=== PATIENT | male | born 1965 | race Caucasian/White ===

== ENCOUNTER 2022-02-11 18:18 | Emergency (ER) | payer OTHER ==
[2022-02-11 19:52] VITALS: TEMP 98.4
[2022-02-11] MEDS ORDERED: SODIUM CHLORIDE 0.9% 1,000 ML IV ONE (21:37)
[2022-02-11] MEDS ORDERED: lisinopriL 20 MG TAB PO STA (21:37)
--- NOTE | 2022-02-11 21:41 | ED ---
Abdominal Pain HPI - General Chief Complaint: Abdominal Pain Stated Complaint: Hernia Time Seen by Provider: 02/11/22 21:30 Source: patient, RN notes reviewed Mode of arrival: ambulatory Limitations: no limitations - History of Present Illness Initial Comments: This is a pleasant 56-year-old who presents to the emergency department complaining of abdominal/umbilical hernia. Patient states he was lifting a tote at work when he felt a bulge on his umbilicus. Patient with his regular doctor and states that he was able to reduce it several times but keeps popping out. For this reason he was instructed to go to the emergency department. Patient denying any nausea or vomiting. Denies any changes in bowel much urination. No patient noted to be hypertensive in triage but states he has not taken his pressure medicine all day. Denies any chest pain or shortness of breath No headache, no fever or chills, no changes in vision or hearing, no sore throat or difficulty with speech, no neck pain, no chest pain or shortness of breath, no nausea or vomiting, no changes in urination or bowel movements, no numbness or tingling, no extremity pain, no skin rashes or lesions. MD Complaint: abdominal pain - Related Data Allergies Allergy/AdvReac Type Severity Reaction Status Date / Time No Known Allergies Allergy Verified 02/11/22 19:51 Review of Systems ROS Statement: Those systems with pertinent positive or pertinent negative responses have been documented in the HPI. ROS Other: All systems not noted in ROS Statement are negative. Past Medical History Past Medical History: Hyperlipidemia, Hypertension History of Any Multi-Drug Resistant Organisms: None Reported Past Surgical History: Orthopedic Surgery Past Psychological History: No Psychological Hx Reported Smoking Status: Current every day smoker Past Alcohol Use History: Occasional Past Drug Use History: Marijuana General Exam - General Exam Comments Initial Comments: Patient does not appear to be ill or toxic. Vital signs reviewed. Limitations: no limitations General appearance: alert, in no apparent distress Head exam: Present: atraumatic, normocephalic, normal inspection Eye exam: Present: normal appearance, PERRL, EOMI. Absent: scleral icterus, conjunctival injection, periorbital swelling ENT exam: Present: normal exam, mucous membranes moist Neck exam: Present: normal inspection, full ROM. Absent: tenderness, meningismus, lymphadenopathy Respiratory exam: Present: normal lung sounds bilaterally. Absent: respiratory distress, wheezes, rales, rhonchi, stridor, chest wall tenderness, accessory muscle use Cardiovascular Exam: Present: regular rate, normal rhythm, normal heart sounds. Absent: systolic murmur, diastolic murmur, rubs, gallop, clicks GI/Abdominal exam: Present: soft, normal bowel sounds, hernia (Reducible, but recurrent umbilical hernia noted. Remainder the abdomen is soft. Tender at the hernia site.). Absent: distended, tenderness, guarding, rebound, rigid Extremities exam: Present: normal inspection, full ROM, normal capillary refill. Absent: tenderness, pedal edema, joint swelling, calf tenderness Back exam: Present: normal inspection Neurological exam: Present: alert, oriented X3, CN II-XII intact Psychiatric exam: Present: normal affect, normal mood Skin exam: Present: warm, dry, intact, normal color. Absent: rash Course Vital Signs 02/11/22 02/11/22 19:49 23:12 Temperature 98.4 F Pulse Rate 103 H 83 Respiratory 20 18 Rate Blood Pressure 208/112 186/91 O2 Sat by Pulse 100 99 Oximetry - Reevaluation(s) Reevaluation #1: 02/11/22 23:02 Medical record is reviewed Symptoms are improved here in the emergency department Patient is informed of results and questions answered Patient in no distress Medical Decision Making - Medical Decision Making Reducible and local hernia which has been out several times a day. Will not stay reduced. Patient hypotensive, has not taken his blood pressure medication. There is a fat containing umbilical hernia with no evidence of obstructive pattern. The patient's blood pressure was elevated on initial evaluation. However he had not taken his antihypertensive medication. Patient was asymptomatic regarding blood pressure. No chest pain or shortness of breath. No edema. No vision or hearing changes. No headache. No urinary complaints. Pressure down to 186/91. Patient urged to follow-up with his regular physician regarding blood pressure control. Patient was told to return to the ER for any signs or symptoms worsen. Told to return immediately if any other problems arise. All questions answered. Treatment plan discussed. Patient in agreement Every effort has been made to ensure accuracy of this dictation. However, due to the limitations of electronic medical records and dictation devices, errors in charting still occur. Patient given follow-up instructions for the general surgeon. Activity limitations. Manufacturers Agent Dr. Roskopp - Lab Data Result diagrams: 02/11/22 21:58 02/11/22 21:58 Lab Results 02/11/22 02/11/22 02/11/22 Range/Units 21:58 21:58 21:58 WBC 11.5 H (3.8-10.6) k/uL RBC 4.99 (4.30-5.90) m/uL Hgb 15.5 (13.0-17.5) gm/dL Hct 46.7 (39.0-53.0) % MCV 93.6 (80.0-100.0) fL MCH 31.0 (25.0-35.0) pg MCHC 33.2 (31.0-37.0) g/dL RDW 13.3 (11.5-15.5) % Plt Count 313 (150-450) k/uL MPV 7.5 Neutrophils % 74 % Lymphocytes % 18 % Monocytes % 4 % Eosinophils % 2 % Basophils % 1 % Neutrophils # 8.5 H (1.3-7.7) k/uL Lymphocytes # 2.1 (1.0-4.8) k/uL Monocytes # 0.5 (0-1.0) k/uL Eosinophils # 0.3 (0-0.7) k/uL Basophils # 0.1 (0-0.2) k/uL Sodium 138 (137-145) mmol/L Potassium 4.0 (3.5-5.1) mmol/L Chloride 104 (98-107) mmol/L Carbon Dioxide 28 (22-30) mmol/L Anion Gap 6 mmol/L BUN 15 (9-20) mg/dL Creatinine 0.82 (0.66-1.25) mg/dL Est GFR (CKD-EPI)AfAm >90 (>60 ml/min/1.73 sqM) Est GFR (CKD-EPI)NonAf >90 (>60 ml/min/1.73 sqM) Glucose 94 (74-99) mg/dL Plasma Lactic Acid Zack 0.8 (0.7-2.0) mmol/L Calcium 9.3 (8.4-10.2) mg/dL Total Bilirubin 0.4 (0.2-1.3) mg/dL AST 29 (17-59) U/L ALT 28 (4-49) U/L Alkaline Phosphatase 136 H (38-126) U/L Total Protein 7.0 (6.3-8.2) g/dL Albumin 4.4 (3.5-5.0) g/dL - Radiology Data Radiology results: report reviewed, image reviewed Fat-containing umbilical hernia noted, no evidence of obstructive pattern per radiology. Disposition Clinical Impression: Umbilical hernia, Hypertension, poor control Narrative: Fat-containing umbilical hernia--reducible Disposition: HOME SELF-CARE Condition: Stable Instructions (If sedation given, give patient instructions): Umbilical Hernia (ED), Hypertension (ED) Additional Instructions: Follow-up with your regular physician as directed regarding blood pressure. Called the surgeon's office tomorrow morning to schedule an appointment. Return to the ER immediately if any symptoms worsen, new symptoms arise, or any other problems develop. Tylenol as directed on bottle for pain control. Is patient prescribed a controlled substance at d/c from ED?: No Referrals: Josh Henderosn DO [Primary Care Provider] - 1-2 days Time of Disposition: 23:04
[2022-02-11 22:22] LABS: Basophils # (A) 0.1 k/uL (0-0.2); Basophils % (A) 1 %; Eosinophils # (A) 0.3 k/uL (0-0.7); Eosinophils % (A) 2 %; HCT 46.7 % (39.0-53.0); HGB 15.5 gm/dL (13.0-17.5); Lymphocytes # (A) 2.1 k/uL (1.0-4.8); Lymphocytes % (A) 18 %; MCHC 33.2 g/dL (31.0-37.0); MCV 93.6 fL (80.0-100.0); Mean Platelet Volume 7.5; Monocytes # (A) 0.5 k/uL (0-1.0); Monocytes % (A) 4 %; Neutrophils # (A) 8.5 k/uL (1.3-7.7); Neutrophils % (A) 74 %; Platelet Count 313 k/uL (150-450); RBC 4.99 m/uL (4.30-5.90); RDW 13.3 % (11.5-15.5); WBC 11.5 k/uL (3.8-10.6)
[2022-02-11 22:24] LABS: ALT 28 U/L (4-49); AST 29 U/L (17-59); African American GFR (CKD) >90 (>60 ml/min/1.73 sqM); Albumin 4.4 g/dL (3.5-5.0); Alkaline Phosphatase 136 U/L (38-126); Anion Gap 6 mmol/L; Blood Urea Nitrogen 15 mg/dL (9-20); Calcium 9.3 mg/dL (8.4-10.2); Carbon Dioxide 28 mmol/L (22-30); Chloride 104 mmol/L (98-107); Glucose 94 mg/dL (74-99); Non-African American GFR(CKD) >90 (>60 ml/min/1.73 sqM); Sodium 138 mmol/L (137-145); Total Bilirubin 0.4 mg/dL (0.2-1.3)
--- NOTE | 2022-02-11 22:58 | CT ---
EXAMINATION TYPE: CT abdomen pelvis w con DATE OF EXAM: 02/11/2022 COMPARISON: None HISTORY: pain CT DLP: 1131.2 mGycm Automated exposure control for dose reduction was used. CONTRAST: Performed with IV Contrast, patient injected with 100 mL of Isovue 300. Images obtained from the diaphragm to the floor the pelvis with IV contrast. The lung bases are clear. No pleural effusion. Heart size is normal. No pericardial effusion. Liver s pleen and stomach pancreas and gallbladder appear intact. The bile ducts are not dilated. There is no adrenal mass. Kidneys show satisfactory contrast opacification. There is no hydronephrosi s. Bladder distends smoothly. There is fat-containing inguinal hernias. No pelvic mass. No free fluid in the pelvis. There is 3 cm fat-containing umbilical hernia. Abdominal aorta is atheromatous. Appen cailin is posterior and appears normal. There is no mesenteric edema. No ascites or free air. No bowel o bstruction. The lumbar vertebrae have normal alignment. There is no compression fracture. Posterior elements are intact. Facet joints are intact. Bony pelvis is intact. Hip joints are intact. IMPRESSION: No acute abnormality in the abdomen pelvis. Umbilical fat-containing hernia. No bowel obstruction.
[2022-02-11 23:14] VITALS: BP 186/91; PULSE 83; RESP 18
== END 2022-02-11 23:45 | disposition home or self-care (01) ==
LOC: EC 18:18
DX: K42.9 Umbilical hernia without obstruction or gangrene (principal); E78.5 Hyperlipidemia, unspecified; I10 Essential (primary) hypertension; F17.200 Nicotine dependence, unspecified, uncomplicated
CPT/HCPCS: 36415; 80053; 83605; 85025; 74177; 99284; Q9967

== ENCOUNTER 2022-03-04 05:42 | Day surgery (SDC) | payer OTHER ==
[2022-02-28 15:47] VITALS: BMI 26.9
[~2022-03-04 05:42] MED LIST: ACETAMINOPHEN TAB 500 MG TAB PO PRN; DEXAMETHASONE SOD PHOSPHATE 4 MG/ML 1 ML VIAL IV ONE; HEPARIN SODIUM,PORCINE/PF 5,000 UNIT/0.5 ML SYRINGE SQ PRN; HYDROmorphone 0.5 MG/0.5 ML SYRINGE IVP PRN; LACTATED RINGERS 1,000 ML IV SCH; fentaNYL (PF) 50 MCG/ML 2 ML AMP IV PRN
[2022-03-04] MEDS ORDERED: ONDANSETRON 4 MG/2 ML VIAL ONE (06:49)
[2022-03-04] MEDS ORDERED: DEXAMETHASONE SOD PHOSPHATE 4 MG/ML 1 ML VIAL IVP ONE (07:03)
[2022-03-04] MEDS ORDERED: MIDAZOLAM 2 MG/2 ML VIAL ONE (07:55)
[2022-03-04] MEDS ORDERED: fentaNYL (PF) 50 MCG/ML 2 ML AMP ONE (07:55)
[2022-03-04] MEDS ORDERED: ROCURONIUM 10 MG/ML (5 ML VIAL) IV ONE (07:55)
[2022-03-04] MEDS ORDERED: PROPOFOL 10 MG/ML 20 ML VIAL IV ONE (07:55)
[2022-03-04] MEDS ORDERED: GLYCOPYRROLATE 0.2 MG/ML 2 ML VIAL ONE (07:55)
[2022-03-04] MEDS ORDERED: SUCCINYLCHOLINE CHLORIDE 100 MG/5 ML SYR IV ONE (07:55)
[2022-03-04] MEDS ORDERED: KETAMINE 10 MG/ML 20 ML VIAL ONE (07:55)
[2022-03-04] MEDS ORDERED: NEOSTIGMINE 1 MG/ML 10 ML VIAL ONE (07:55)
[2022-03-04] MEDS ORDERED: LIDOCAINE 2% INJ 20 MG/ML (2 ML VIAL) ONE (07:55)
[2022-03-04] MEDS ORDERED: HYDROmorphone (PF) 1 MG/ML ONE (07:55)
[2022-03-04] MEDS ORDERED: PHENYLEPHRINE-0.9% NACL SYG 1,000 MCG/10 ML SYRINGE ONE (07:55)
[2022-03-04] MEDS ORDERED: BUPIVACAIN-EPI 0.25%-1:200,000 30 ML VIAL SQ ONE ×3 (08:16→08:21)
--- NOTE | 2022-03-04 09:07 | P.GSHP ---
History of Present Illness H&P Date: 03/04/22 Chief Complaint: Umbilical hernia This a 56-year-old male with incarcerated umbilical hernia. Patient presents today for laparoscopic robotic-assisted repair. Past Medical History Past Medical History: Hyperlipidemia, Hypertension, Osteoarthritis (OA) History of Any Multi-Drug Resistant Organisms: None Reported Past Surgical History: Heart Catheterization, Orthopedic Surgery Additional Past Surgical History / Comment(s): LEFT SHOULDER SURGERY , BONE SPURS ON RIGHT SHOULDER Past Anesthesia/Blood Transfusion Reactions: No Reported Reaction Smoking Status: Current every day smoker - Past Family History Sister(s) Family Medical History: Cancer Additional Family Medical History / Comment(s): BREAST CANCER Medications and Allergies Home Medications Medication Instructions Recorded Confirmed Type lisinopriL 30 mg PO BID 02/28/22 02/28/22 History Acetaminophen [Tylenol Extra 500 mg PO DAILY PRN 03/04/22 03/04/22 History Strength] Allergies Allergy/AdvReac Type Severity Reaction Status Date / Time No Known Allergies Allergy Verified 03/04/22 06:19 Surgical - Exam Vital Signs Temp Pulse Resp BP Pulse Ox 97.2 F L 58 L 16 152/76 98 03/04/22 06:25 03/04/22 06:25 03/04/22 06:25 03/04/22 06:25 03/04/22 06:25 - General well developed, well nourished, no distress - Eyes PERRL - ENT normal pinna - Neck no masses - Respiratory normal expansion - Cardiovascular Rhythm: regular - Abdomen Abdomen: soft, non tender Hernia: umbilical (3 cm incarcerated umbilical hernia) Assessment and Plan Assessment: Impression local hernia. We'll perform laparoscopic robotic-assisted repair.
--- NOTE | 2022-03-04 09:09 | P.OP ---
Date of Procedure: 03/04/22 Preoperative Diagnosis: Incarcerated umbilical hernia Postoperative Diagnosis: Incarcerated umbilical hernia Procedure(s) Performed: Laparoscopic robotic-assisted repair of incisional hernia. Partial omentectomy Transversus abdominous plane block Anesthesia: ROGER Surgeon: Lorenzo Fischer Estimated Blood Loss (ml): 5 Pathology: other (Omentum/hernia sac) Condition: stable Disposition: PACU Description of Procedure: The patient was placed on the operating table in the supine position. He received general anesthesia. His abdomen was prepped and draped usual fashion. Using a 5 mm optical trocar under direct visualization the peritoneal cavity was entered in the left upper quadrant. The abdomen was then insufflated. The laparoscope was placed back into the perineal cavity. Next a 8 mm robotic trocar was placed in the left lower quadrant and a 12 mm robotic trocar was placed in the left lateral position. The original 5 mm trocar was exchanged for a 8 mm robotic trocar. The patient's placed in the left side up position. A four-quadrant transversus abdominis plane block was performed using 1% local Xylocaine. And the patient was docked the robot. The umbilical hernia was visualized. Using hook cautery the peritoneum over the umbilical hernia was excised. Incarcerated omentum and hernia sac were dissected free and sent to pathology. The fascial opening was repaired using 0V LOC suture. Next a piece of 11 cm round ventral light ST mesh was placed into the. Cavity and secured with 2 OV lock suture. The patient was undocked the robot. The needles were retrieved. The fascia of the 12 mm trocar site was closed with 0 Ethibond suture. Skin was closed interrupted 3-0 Monocryl suture. Dermabond dressings was applied. Patient top procedure well and was sent to recovery room stable condition.
[2022-03-04 09:20] VITALS: TEMP 96.8
[2022-03-04] MEDS ORDERED: HYDROmorphone 0.5 MG/0.5 ML SYRINGE IVP ONE ×2 (09:25→09:38)
[2022-03-04] MEDS ORDERED: LACTATED RINGERS 1,000 ML IV ONE ×2 (09:30)
[2022-03-04 11:24] VITALS: BP 158/78; PULSE 72; RESP 18
== END 2022-03-04 11:30 | disposition home or self-care (01) ==
LOC: OR 05:42
PROVIDERS: ATTEND Surgery
DX: K42.0 Umbilical hernia with obstruction, without gangrene (principal); I10 Essential (primary) hypertension; E78.5 Hyperlipidemia, unspecified; F17.200 Nicotine dependence, unspecified, uncomplicated; Z79.899 Other long term (current) drug therapy; Z80.3 Family history of malignant neoplasm of breast
CPT/HCPCS: 49653; 88305; C1781; J2250; J1100; J2710; J0690; J2405; J3010; J1170 ×2; J2370; J0330; J2704; J1644; J2001

== ENCOUNTER 2022-04-16 07:26 | Day surgery (SDC) | payer OTHER ==
[2022-04-15 08:26] VITALS: BMI 26.5
[~2022-04-16 07:26] MED LIST changes: +LIDOCAINE 1% (10MG/ML) FOR IV START INTRADERMA PRN; +ONDANSETRON 4 MG/2 ML VIAL IVP ONE; +SCOPOLAMINE 1 MG/72 HR PATCH TRANSDERM ONE; -fentaNYL (PF) 50 MCG/ML 2 ML AMP IV PRN
[2022-04-16 08:20] LABS: Glucose,Whole Blood 113 mg/dL (70-110)
[2022-04-16] MEDS ORDERED: MIDAZOLAM 2 MG/2 ML VIAL IVP ONE (08:46)
--- NOTE | 2022-04-16 09:15 | P.GSHP ---
History of Present Illness H&P Date: 04/16/22 Chief Complaint: Right inguinal hernia This a 56-year-old male presents today for laparoscopic robotic of Right inguinal hernia Past Medical History Past Medical History: Hyperlipidemia, Hypertension, Osteoarthritis (OA) Additional Past Medical History / Comment(s): occ migraines, History of Any Multi-Drug Resistant Organisms: None Reported Past Surgical History: Back Surgery, Heart Catheterization, Hernia Repair, Orthopedic Surgery Additional Past Surgical History / Comment(s): LEFT SHOULDER SURGERY , BONE SPURS ON RIGHT SHOULDER , umbilical hernia repair, cervical cage C5-C6 Past Anesthesia/Blood Transfusion Reactions: No Reported Reaction Smoking Status: Current every day smoker - Past Family History Sister(s) Family Medical History: Cancer Additional Family Medical History / Comment(s): BREAST CANCER Medications and Allergies Home Medications Medication Instructions Recorded Confirmed Type lisinopriL 30 mg PO BID 02/28/22 04/16/22 History Acetaminophen [Tylenol Extra 1,000 mg PO DAILY PRN 03/04/22 04/16/22 History Strength] Ibuprofen [Motrin] 600 mg PO Q6HR PRN #40 tab 03/04/22 04/15/22 Rx Allergies Allergy/AdvReac Type Severity Reaction Status Date / Time No Known Allergies Allergy Verified 04/15/22 08:19 Surgical - Exam Vital Signs Temp Pulse Resp BP Pulse Ox 97.6 F 62 16 155/87 98 04/16/22 08:07 04/16/22 08:07 04/16/22 08:07 04/16/22 08:07 04/16/22 08:07 - General well developed, well nourished, no distress - Eyes PERRL - ENT normal pinna - Neck no masses - Respiratory normal expansion - Cardiovascular Rhythm: regular - Abdomen Abdomen: soft, non tender Hernia: inguinal (Right inguinal) Results - Labs Abnormal Lab Results - Last 24 Hours (Table) 04/16/22 Range/Units 08:18 POC Glucose (mg/dL) 113 H (70-110) mg/dL Assessment and Plan Assessment: Radial hernia. We'll perform laparoscopic robotic-assisted repair.
[2022-04-16] MEDS ORDERED: LIDOCAINE 2% INJ 20 MG/ML (2 ML VIAL) ONE (09:29)
[2022-04-16] MEDS ORDERED: KETAMINE 10 MG/ML 20 ML VIAL ONE (09:29)
[2022-04-16] MEDS ORDERED: SUCCINYLCHOLINE CHLORIDE 200 MG/10 ML VIAL IV ONE (09:29)
[2022-04-16] MEDS ORDERED: NEOSTIGMINE 1 MG/ML 10 ML VIAL ONE (09:29)
[2022-04-16] MEDS ORDERED: MIDAZOLAM 2 MG/2 ML VIAL ONE (09:29)
[2022-04-16] MEDS ORDERED: KETOROLAC 15 MG/ML 1 ML VIAL ONE (09:29)
[2022-04-16] MEDS ORDERED: ROPIVACAINE 5 MG/ML 30 ML VIAL ONE (09:29)
[2022-04-16] MEDS ORDERED: GLYCOPYRROLATE 0.2 MG/ML 2 ML VIAL ONE (09:29)
[2022-04-16] MEDS ORDERED: HYDROmorphone (PF) 1 MG/ML ONE (09:29)
[2022-04-16] MEDS ORDERED: PROPOFOL 10 MG/ML 20 ML VIAL IV ONE (09:29)
[2022-04-16] MEDS ORDERED: SODIUM CHLORIDE 0.9% (PF) 10 ML VIAL ONE (09:29)
[2022-04-16] MEDS ORDERED: ROCURONIUM 10 MG/ML (5 ML VIAL) IV ONE (09:29)
[2022-04-16] MEDS ORDERED: fentaNYL (PF) 50 MCG/ML 2 ML AMP ONE (09:29)
[2022-04-16] MEDS ORDERED: BUPIVACAIN-EPI 0.25%-1:200,000 30 ML VIAL SQ ONE (09:55)
--- NOTE | 2022-04-16 10:25 | P.OP ---
Date of Procedure: 04/16/22 Preoperative Diagnosis: Right inguinal hernia Postoperative Diagnosis: Right inguinal hernia Procedure(s) Performed: Laparoscopic robotic system repair of right inguinal hernia Excision of cord lipoma Transversus abdominis plane block Anesthesia: ROGER Surgeon: Lorenzo Fischer Estimated Blood Loss (ml): 5 Pathology: other (Cord lipoma) Condition: stable Disposition: PACU Description of Procedure: The patient's placed on the operating table in the supine position. The patient received general anesthesia. The patient's abdomen was prepped and draped in usual sterile fashion. The skin was anesthetized 1% local Xylocaine at the incision sites. Using an 11 blade a skin incision was made at the umbilicus. The fascia was grasped with a Carmen and then the peritoneal cavity was entered with the Veress needle. Position of the Veress needle was confirmed with a positive drop test. After adequate insufflation a 5 mm trocar was placed into the peritoneal cavity. The Laparoscope was placed the peritoneal cavity. And a robotic 8 mm trocar was placed in the right lateral position and then another 8 mm robotic trochars placed in the left lateral position. The original 5 mm trocar was exchanged for a 12 mm trocar. A four-quadrant transversus abdominis plane block was performed using 1% local Xylocaine. The patient was placed in reverse Trendelenburg and then the patient was docked to the robot. Next the peritoneum over top of the hernia was incised and then using blunt and sharp dissection and electrocautery the hernia sac was dissected free from the floor of the inguinal canal. The cord lipoma was dissected free and sent to pathology. The hernia sac was completely reduced into the peritoneal cavity. And then using the Pro adjunct trainer mesh the hernia was repaired. The peritoneum was then sutured with 20V lock suture. The patient was then undocked the robot. The needle was withdrawn from the peritoneal cavity. The umbilical trocar site was closed with 0 Ethibond suture. The skin was closed interrupted 3-0 Monocryl suture. Dermabond dressing was applied. Patient was sent to recovery in stable condition.
[2022-04-16 10:31] VITALS: TEMP 97
[2022-04-16 10:44] VITALS: RESP 16
[2022-04-16] MEDS ORDERED: LACTATED RINGERS 1,000 ML IV ONE (11:21)
[2022-04-16 11:46] VITALS: BP 130/78; PULSE 75
--- NOTE | 2022-04-16 13:12 | P.ANPRN ---
Procedure Note - Anesthesia - Nerve Block Performed Bilateral Erector Spinae Single Time Out Performed: Yes Date of Procedure: 04/16/22 Procedure Start Time: 08:45 Procedure Stop Time: 09:01 Location of Patient: PreOp Indication: Acute Post-Operative Pain, Requested by Surgeon Sedation Type: Sedate with meaningful contact maintained Preparation: Sterile Prep Position: Prone Needle Types: Pajunk Needle Gauge: 21 Ultrasound used to visualize needle placement: Yes Ultrasound used to observe medication spread: Yes Blood Aspirated: No Pain Paresthesia on Injection Noted: No Resistance on Injection: Normal Image Stored and Saved: Yes Events: Uneventful and Well Tolerated (Ropivacaine 0.5% 15 mL with normal saline 10 mL plusMethasone 4 mg given bilaterally at L1)
== END 2022-04-16 12:33 | disposition home or self-care (01) ==
LOC: OR 07:26
PROVIDERS: ATTEND Surgery
DX: K40.30 Unilateral inguinal hernia, with obstruction, without gangrene, not specified as recurrent (principal); D17.6 Benign lipomatous neoplasm of spermatic cord; G89.18 Other acute postprocedural pain; F17.200 Nicotine dependence, unspecified, uncomplicated; Z79.899 Other long term (current) drug therapy; Z80.3 Family history of malignant neoplasm of breast
CPT/HCPCS: 64999; 76942; 49650; C1781; J2250; J0330; J1100; J2710; J0690; J2405; J3010; J1170; J2795; J1885; J2704; J1644; J2001; 88304

== ENCOUNTER 2022-11-17 07:14 | Day surgery (SDC) | payer OTHER ==
[2022-11-12 14:55] VITALS: BMI 27.1
[~2022-11-17 07:14] MED LIST changes: -DEXAMETHASONE SOD PHOSPHATE 4 MG/ML 1 ML VIAL IV ONE; -HYDROmorphone 0.5 MG/0.5 ML SYRINGE IVP PRN; -LACTATED RINGERS 1,000 ML IV SCH; -LIDOCAINE 1% (10MG/ML) FOR IV START INTRADERMA PRN; -ONDANSETRON 4 MG/2 ML VIAL IVP ONE; -SCOPOLAMINE 1 MG/72 HR PATCH TRANSDERM ONE
[2022-11-17] MEDS ORDERED: LACTATED RINGERS 1,000 ML IV ONE (07:44)
[2022-11-17] MEDS ORDERED: MIDAZOLAM 2 MG/2 ML VIAL IV PRN (07:47)
[2022-11-17] MEDS ORDERED: ONDANSETRON 4 MG/2 ML VIAL IVP ONE (07:47)
[2022-11-17] MEDS ORDERED: SCOPOLAMINE 1 MG/72 HR PATCH TRANSDERM ONE (07:47)
[2022-11-17] MEDS ORDERED: DEXAMETHASONE SOD PHOSPHATE 4 MG/ML 1 ML VIAL IV ONE (07:47)
[2022-11-17 08:19] LABS: Basophils # (A) 0.1 k/uL (0-0.2); Basophils % (A) 1 %; Eosinophils # (A) 0.3 k/uL (0-0.7); Eosinophils % (A) 4 %; HCT 46.5 % (39.0-53.0); HGB 15.9 gm/dL (13.0-17.5); Lymphocytes # (A) 1.7 k/uL (1.0-4.8); Lymphocytes % (A) 22 %; MCH 30.6 pg (25.0-35.0); MCHC 34.1 g/dL (31.0-37.0); MCV 89.5 fL (80.0-100.0); Monocytes # (A) 0.4 k/uL (0-1.0); Monocytes % (A) 5 %; Neutrophils # (A) 5.1 k/uL (1.3-7.7); Neutrophils % (A) 67 %; Platelet Count 280 k/uL (150-450); RDW 13.2 % (11.5-15.5); WBC 7.6 k/uL (3.8-10.6)
[2022-11-17] MEDS ORDERED: MIDAZOLAM 2 MG/2 ML VIAL IVP ONE (08:30)
[2022-11-17 08:39] LABS: ALT 44 U/L (4-49); AST 26 U/L (17-59); African American GFR (CKD) >90 (>60 ml/min/1.73 sqM); Albumin 4.4 g/dL (3.5-5.0); Alkaline Phosphatase 134 U/L (38-126); Anion Gap 8 mmol/L; Blood Urea Nitrogen 17 mg/dL (9-20); Calcium 9.8 mg/dL (8.4-10.2); Carbon Dioxide 28 mmol/L (22-30); Chloride 105 mmol/L (98-107); Glucose 119 mg/dL (74-99); Non-African American GFR(CKD) >90 (>60 ml/min/1.73 sqM); Potassium 4.4 mmol/L (3.5-5.1); Sodium 141 mmol/L (137-145); Total Bilirubin 0.5 mg/dL (0.2-1.3); Total Protein 7.7 g/dL (6.3-8.2)
--- NOTE | 2022-11-17 08:53 | P.ANPRN ---
Procedure Note - Anesthesia - Nerve Block Performed Right Erector Spinae Single Date of Procedure: 11/17/22 Procedure Start Time: 08:29 Procedure Stop Time: 08:46 Location of Patient: PreOp Indication: Acute Post-Operative Pain, Requested by Surgeon Sedation Type: Sedate with meaningful contact maintained Preparation: Sterile Prep Position: Prone Needle Types: Pajunk Needle Gauge: 21 Ultrasound used to visualize needle placement: Yes Ultrasound used to observe medication spread: Yes Injectate: Other (see comment) (Ropivacaine 0.25%, 30 mls, with 4 mgs of Decadron) Blood Aspirated: No Pain Paresthesia on Injection Noted: No Resistance on Injection: Normal Image Stored and Saved: Yes Events: Uneventful and Well Tolerated
[2022-11-17] MEDS ORDERED: fentaNYL (PF) 50 MCG/ML 2 ML AMP ONE (09:08)
[2022-11-17] MEDS ORDERED: KETOROLAC 15 MG/ML 1 ML VIAL ONE (09:08)
[2022-11-17] MEDS ORDERED: LIDOCAINE 2% INJ 20 MG/ML (2 ML VIAL) ONE (09:08)
[2022-11-17] MEDS ORDERED: NEOSTIGMINE 1 MG/ML 10 ML VIAL ONE (09:08)
[2022-11-17] MEDS ORDERED: SUCCINYLCHOLINE CHLORIDE 200 MG/10 ML VIAL IV ONE (09:08)
[2022-11-17] MEDS ORDERED: GLYCOPYRROLATE 0.2 MG/ML 2 ML VIAL ONE (09:08)
[2022-11-17] MEDS ORDERED: KETAMINE 10 MG/ML 20 ML VIAL ONE (09:08)
[2022-11-17] MEDS ORDERED: DEXAMETHASONE SOD PHOSPHATE 4 MG/ML 1 ML VIAL ONE (09:08)
[2022-11-17] MEDS ORDERED: PROPOFOL 10 MG/ML 20 ML VIAL IV ONE (09:08)
[2022-11-17] MEDS ORDERED: ROPIVACAINE 5 MG/ML 30 ML VIAL ONE (09:08)
[2022-11-17] MEDS ORDERED: ROCURONIUM 10 MG/ML (5 ML VIAL) IV ONE (09:08)
[2022-11-17] MEDS ORDERED: MIDAZOLAM 2 MG/2 ML VIAL ONE (09:08)
[2022-11-17] MEDS ORDERED: BUPIVACAINE (PF) 0.25% 30 ML VIAL SQ ONE (09:11)
[2022-11-17] MEDS: HYDROmorphone 0.5 MG/0.5 ML SYRINGE IVP PRN ×2 (10:27→10:40)
[2022-11-17 10:35] VITALS: TEMP 98.4
--- NOTE | 2022-11-17 10:40 | P.OP ---
Date of Procedure: 11/17/22 Preoperative Diagnosis: Recurrent right inguinal hernia Postoperative Diagnosis: Recurrent right inguinal hernia Cord lipoma Procedure(s) Performed: Open repair of recurrent right we'll hernia Excision of cord lipoma Anesthesia: ROGER Surgeon: Lorenzo Fischer Estimated Blood Loss (ml): 5 Pathology: other (Cord lipoma) Condition: stable Disposition: PACU Operative Findings: Large Prolene hernia mesh system plug Description of Procedure: DESCRIPTION OF PROCEDURE: The patient was placed in the supine position after receiving adequate anesthesia. Patients groin was prepped and draped in the usual sterile fashion. A standard hernia incision was made and the subcutaneous tissues were divided with electrocautery. The fascia of the external oblique was exposed. A barb the fascia was made with #15 blade. The fascia was then opened with pair of Metzenbaum scissors. A Weitlaner retractor was placed in the wound and the cord structures were grasped and dissected free from the inguinal canal. A rubber Rohini drain was placed damien und the cord structures. The hernial sac was seen on the anterior-medial portion of the cord and this was dissected free from the cord. The hernia sac was then invaginated to the peritoneal cavity. Using blunt finger dissection, the preperitoneal space was dissected and then the large Prolene hernial mesh plug was placed into the prepared space. The inferior leaf was expanded. The superior leaf was secured to the pubic tubercle using 2-0 Prolene suture. The lateral portion of the superior leaf was incised and cords tied and secured to the transversalis fascia using 2-0 Prolene suture. The cord lipoma was dissected free and sent to pathology. Fascia of the external oblique was then closed using #0 Vicryl suture. The Rohini drain was removed. The Scarpas fascia was then closed with 3-0 Vicryl suture and skin was closed with esther. The patient tolerated the procedure well.
[2022-11-17] MEDS: LACTATED RINGERS 1,000 ML IV SCH ×2 (10:49→11:23)
[2022-11-17 11:19] VITALS: RESP 16
[2022-11-17 12:20] VITALS: BP 156/86; PULSE 58
== END 2022-11-17 11:46 | disposition home or self-care (01) ==
LOC: OR 07:14
PROVIDERS: ATTEND Surgery
DX: K40.91 Unilateral inguinal hernia, without obstruction or gangrene, recurrent (principal); D17.6 Benign lipomatous neoplasm of spermatic cord; G89.18 Other acute postprocedural pain; F17.200 Nicotine dependence, unspecified, uncomplicated; Z98.890 Other specified postprocedural states
CPT/HCPCS: 49520; 64999; 88304; 80053; 85025; C1781; J2250; J0330; J1100; J2710; J0690; J2405; J3010; J2795; J1885; J2704; J1170; J1644; J2001